=== PATIENT | male | born 1980 | race Caucasian/White ===

== ENCOUNTER 2021-03-12 18:41 | Emergency (ER) | payer OTHER ==
[~2021-03-12] VITALS: Ht 188 cm; Wt 81.6 kg
[2021-03-12 19:03] VITALS: BP 124/91
[2021-03-12] MEDS ORDERED: KETOROLAC TROMETH 60MG/2ML VIAL ONE (23:59)
[2021-03-13] MEDS ORDERED: KETOROLAC TROMETH 60MG/2ML VIAL IM ONE
== END 2021-03-13 01:30 | disposition left against medical advice (07) ==
LOC: ER 18:43
DX: S82.892A Other fracture of left lower leg, initial encounter for closed fracture (principal); Z53.29 Procedure and treatment not carried out because of patient's decision for other reasons; X58.XXXA Exposure to other specified factors, initial encounter; Y93.89 Activity, other specified; Y92.89 Other specified places as the place of occurrence of the external cause; Y99.8 Other external cause status
CPT/HCPCS: 29515; 73610; 96372; 99283; J1885